=== PATIENT | male | born 1980 | race Caucasian/White ===

== ENCOUNTER → 2016-08-28 | Day surgery (SDC) | payer OTHER | LOC: RAD 12:32 | PROVIDERS: ATTEND Orthopaedic Surgery | PROC: BP09ZZZ Plain Radiography of Left Shoulder (ICD-10-PCS; principal; 2016-08-28) | DX: M24.819 Other specific joint derangements of unspecified shoulder, not elsewhere classified (principal) | CPT/HCPCS: 73222; 73040; 77002; A9576 ==